=== PATIENT | female | born 1955 | race Hispanic/Latino ===

== ENCOUNTER 2016-09-27 19:50 | Emergency (ER) | payer OTHER ==
[2016-09-27 19:51] VITALS: BMI 42.0
[2016-09-27 20:11] VITALS: TEMP 98
--- NOTE | 2016-09-27 20:57 | ED PDOC ---
Arrival/HPI - General Chief Complaint: Upper Extremity Problem/Injury Time Seen by Provider: 09/27/16 20:03 - History of Present Illness Narrative History of Present Illness (Text): 09/27/16 20:50 61-year-old female in the emergency Department right shoulder discomfort localized in the inferior portion. Patient states she had a mechanical fall where she fell onto her right upper extremity. States that she did not hit her head, did not lose consciousness, states that she has no other extremity or torso trauma or discomfort. Patient denies any head or neck pain at this time, denies any nausea or vomiting. Patient states her pain is better with rest and worse with palpation and movement of her right shoulder. Pt denies R. clavicle, arm, elbow, wrist, or hand pain. Past Medical History - Provider Review Nursing Documentation Reviewed: Yes - Cardiac Hx Cardiac Disorders: Yes Hx Hypertension: Yes Hx Pacemaker: No - Pulmonary Hx Respiratory Disorders: No - Neurological Hx Neurological Disorder: No Hx Paralysis: No - HEENT Hx HEENT Disorder: No - Renal Hx Renal Disorder: No - Endocrine/Metabolic Hx Endocrine Disorders: No - Hematological/Oncological Hx Blood Disorders: No Hx Blood Transfusions: No Hx Blood Transfusion Reaction: No - Integumentary Hx Dermatological Disorder: No - Musculoskeletal/Rheumatological Hx Musculoskeletal Disorders: Yes (B/L Partial Knee Replacements) - Gastrointestinal Hx Gastrointestinal Disorders: No - Genitourinary/Gynecological Hx Genitourinary Disorders: No - Psychiatric Hx Psychophysiologic Disorder: No Hx Substance Use: No - Surgical History Other/Comment: Carpal Tunnel, B/L Partial Knee Replacments - Anesthesia Hx Anesthesia Reactions: Yes Hx Malignant Hyperthermia: No Family/Social History Family/Social History: Unknown Family HX Smoking Status: Never Smoked Hx Alcohol Use: Yes (RARE) Frequency of alcohol use: Socially Hx Substance Use: No Allergies/Home Meds Allergies/Adverse Reactions: Allergies naproxen [From Naprosyn] Allergy (Unknown, Verified 09/27/16 20:12) RASH Sulfa (Sulfonamide Antibiotics) Allergy (Unknown, Verified 09/27/16 20:27) RASH Home Medications: Home Meds Medication Instructions Recorded Confirmed Amlodipine Bes/Olmesartan Med 1 tab PO QPM 07/10/12 09/27/16 [Omar 10 mg-40 mg] Cholecalciferol [D-3] 2,000 iu PO QPM 07/10/12 09/27/16 Fenofibrate Nanocrystallized 160 mg PO QPM 07/10/12 09/27/16 [Triglide] Zleob-3-Fffd Ethyl Esters [Lovaza] 2 gm PO QPM 07/10/12 09/27/16 Paroxetine HCl [Paroxetine] 30 mg PO QPM 07/10/12 09/27/16 Rosuvastatin Calcium [Crestor] 10 mg PO QPM 07/10/12 09/27/16 Physical Exam - Physical Exam Narrative Physical Exam (Text): 09/27/16 20:52 - Review of Systems Constitutional: Normal. absent: Fatigue, Weight Change, Fevers Eyes: Normal ENT: denies sore throat, denies tristhmus Respiratory: Normal. absent: SOB, Cough, Sputum Cardiovascular: absent: Chest Pain, Palpitations, Syncope Gastrointestinal: Normal. absent: Abdominal Pain, Diarrhea, Nausea, Vomiting Genitourinary: Normal. absent: Dysuria, Frequency, Hematuria, vaginal bleeding Musculoskeletal: Right shoulder. absent: Back Pain, Neck Pain Skin: no rashes, no erythema Neurological: absent: Focal Weakness Endocrine: Normal Hemo/Lymphatic: Normal Psychiatric: No suicidal or homicidal ideations Physical exam Patient appears age appropriate in no distress, speaking full sentences without difficulty Head atraumatic. No nasal bone deformity or tenderness, no facial or jaw pain/ swelling. No neck midline tenderness, thoracic and lumbar spine with no midline tenderness. Pt moving b/l upper and lower extremities without difficulty, 5/5 strength, with full active and passive ROM. Distal neurovasc fully intact. Abd soft/nt/ng, no hematomas, no peritoneal signs. Neg. pelvic rock. - Systems Exam Head: Present: Atraumatic, Normocephalic Pupils: Present: PERRL Extroacular Muscles: Present: EOMI Conjunctiva: Present: Normal Mouth: Present: Moist Mucous Membranes Neck: Present: Normal Range of Motion. No: MIDLINE TENDERNESS, Paraspinal Tenderness Respiratory/Chest: Present: Clear to Auscultation, Good Air Exchange. No: Respiratory Distress, Accessory Muscle Use, Tachypneic Cardiovascular: Present: Regular Rate and Rhythm, Normal S1, S2, Peripheal Pulses Present. No: Murmurs Abdomen: Present: Normal Bowel Sounds. No: Tenderness, Distention, Peritoneal Signs, Rebound, Guarding Back: Present: Normal Inspection. No: Midline Tenderness, Paraspinal Tenderness Upper Extremity: Present: Right shoulder with full active and passive range of motion. No pain or tenderness over the clavicle. Distal neurovascular fully intact. No: Cyanosis, Edema Lower Extremity: Present: Normal Inspection. No: Edema Neurological: Present: GCS=15, Speech Normal, cranial nerves II through XII fully intact with no cerebellar abnormality, neurosensory fully intact. No focal neurological deficits. Skin: Present: Warm, Dry, Normal Color. No: Rashes Lymphatic: Present: OX3, NI, NC Psychiatric: Present: Alert, Oriented x 3, Normal Insight, Normal Concentration Vital Signs Reviewed: Yes Vital Signs Temp Pulse Resp BP Pulse Ox 09/27/16 20:02 98.0 F 98 H 20 127/78 96 Temperature: Afebrile Blood Pressure: Normal Pulse: Regular Respiratory Rate: Normal Appearance: Positive for: Well-Appearing Pain Distress: None Mental Status: Positive for: Alert and Oriented X 3 Medical Decision Making ED Course and Treatment: 09/27/16 20:57 pt in the ER with R. shoulder pain after a mechanical injury in acute findings on PE exay ordered 09/27/16 21:29 No fractures or dislocations patient's right shoulder x-ray. Interpreted by me. had an extensive d/w pt that although xrays are negative for any acute bony abnormality, it is still very important to fu with pmd and ortho specialist for further w/u and testing such as MRI to r/o any ligamentous/tendenous/meniscal injury. Pt verbalized full understanding of above discussion. Pt states she understands to return to the ER right away for new or worsening symptoms or for inability to f/u with PMD or specialist as instructed. Patient states that she fully agrees with and understands discharge instructions. States that she agrees with the plan and disposition. Verbalized and repeated discharge instructions and plan. I have given the patient opportunity to ask any additional questions. - RAD Interpretation Radiology Orders: 09/27/16 20:30 SHOULDER RIGHT [RAD] Stat - Medication Orders Current Medication Orders: Discontinued Medications Acetaminophen (Tylenol 325mg Tab) 975 mg PO STAT STA Stop: 09/27/16 20:31 Last Admin: 09/27/16 20:45 Dose: 975 mg Disposition/Present on Arrival - Present on Arrival Any Indicators Present on Arrival: No History of DVT/PE: No History of Uncontrolled Diabetes: No Urinary Catheter: No History of Decub. Ulcer: No History Surgical Site Infection Following: Orthopedic Procedures - Disposition Have Diagnosis and Disposition been Completed?: Yes Diagnosis: Shoulder injury Disposition: HOME/ ROUTINE Disposition Time: 21:29 Patient Plan: Discharge Condition: GOOD Discharge Instructions (ExitCare): Shoulder Sprain (ED) Additional Instructions: PLEASE RETURN TO THE EMERGENCY DEPARTMENT FOR NEW OR WORSENING SYMPTOMS. RETURN RIGHT AWAY IF YOU CANNOT FOLLOW UP WITH YOUR PRIMARY CARE DOCTOR, CLINIC, OR SPECIALIST IN 1-2 DAYS. PLEASE TAKE [id number] MOTRIN OR TYLENOL FOR PAIN Referrals: [employer] Dayana Richmond, [Primary Care Provider] - Follow up with primary Matt Colbert III, MD [Medical Doctor] - Follow up with primary Forms: [employer] ([place]), WORK NOTE
[2016-09-27 21:53] VITALS: BP 130/80; PULSE 97; RESP 18; O2SAT 98
--- NOTE | 2016-09-28 09:37 | RAD ---
PROCEDURE: Radiographs of the Right Shoulder HISTORY: pain COMPARISON: No prior. FINDINGS: BONES: Normal. No fracture. JOINTS: Normal. Glenohumeral and acromioclavicular joints preserved. No osteoarthritis. SOFT TISSUES: Normal. OTHER FINDINGS: None. IMPRESSION: Normal radiographs of the right shoulder.
== END 2016-09-27 21:52 | disposition home or self-care (01) ==
LOC: ED 19:50
DX: S49.91XA Unspecified injury of right shoulder and upper arm, initial encounter (principal); W19.XXXA Unspecified fall, initial encounter

== ENCOUNTER 2018-02-24 07:06 | Outpatient (CLI) | payer OTHER | END 2018-02-24 07:07 | disposition home or self-care (01) | LOC: CARDIO 07:06 ==

== ENCOUNTER 2018-03-31 07:26 | Outpatient (CLI) | payer OTHER | END 2018-03-31 07:27 | disposition home or self-care (01) | LOC: LAB 07:26 ==